=== PATIENT | male | born 1995 | race Two or more races ===

== ENCOUNTER 2017-10-25 00:40 | Emergency (ER) | payer OTHER ==
[2017-10-25] MEDS ORDERED: NAPROXEN 250 MG TABLET PO ONE (01:02)
--- NOTE | 2017-10-25 01:08 | ER Document Report ---
ED Extremity Problem, Upper - General Chief Complaint: Shoulder Pain Stated Complaint: SHOULDER INJURY Time Seen by Provider: 10/25/17 01:01 Mode of Arrival: Ambulatory Information source: Patient TRAVEL OUTSIDE OF THE [place] 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 There was no direct trauma. - Related Data Allergies/Adverse Reactions: No Known Allergies Allergy (Verified 10/25/17 00:50) Past Medical History - Social History Smoking Status: Never Smoker Cigarette use (# per day): No Chew tobacco use (# tins/day): No Smoking Education Provided: No Family History: Reviewed & Not Pertinent Review of Systems - Review of Systems Constitutional: No symptoms reported EENT: No symptoms reported Cardiovascular: No symptoms reported Respiratory: No symptoms reported Gastrointestinal: No symptoms reported Musculoskeletal: See HPI, Joint pain -: Yes All other systems reviewed and negative Physical Exam - Vital signs Vitals: Temp Pulse Resp BP Pulse Ox 98.4 F 80 16 132/92 H 97 10/25/17 00:50 10/25/17 00:50 10/25/17 00:50 10/25/17 00:50 10/25/17 00:50 - Extremities Shoulder: Tender - there is min TTP of the anterior aspect of the R shoulder diffusely. Neg STS; FROM of shoulder; N/V intact Course - Vital Signs Vital signs: Temp Pulse Resp BP Pulse Ox 98.4 F 80 16 132/92 H 97 10/25/17 00:50 10/25/17 00:50 10/25/17 00:50 10/25/17 00:50 10/25/17 00:50 Procedures - Immobilization Right Shoulder Time completed: 01:05 Pre-Proc Neuro Vasc Exam: Normal Immobilizer type: Sling Performed by: RN Post-Proc Neuro Vasc Exam: Normal Alignment checked and good: Yes Discharge - Discharge Clinical Impression: Strain of shoulder, right Qualifiers: Encounter type: initial encounter Qualified Code(s): S46.911A - Strain of unspecified muscle, fascia and tendon at shoulder and upper arm level, right arm , initial encounter Condition: Stable Disposition: HOME, SELF-CARE Additional Instructions: rest, sling, take medications as prescribed, return if worse Prescriptions: Naproxen 500 mg PO BID #20 tablet Referrals: MARY MARC DO [ACTIVE STAFF] - Follow up as needed
[2017-10-25 01:14] VITALS: BP 128/86
== END 2017-10-25 01:14 | disposition home or self-care (01) ==
LOC: ER 00:40
DX: S46.911A Strain of unspecified muscle, fascia and tendon at shoulder and upper arm level, right arm, initial encounter (principal); Y35.893A Legal intervention involving other specified means, suspect injured, initial encounter; Y92.512 Supermarket, store or market as the place of occurrence of the external cause
CPT/HCPCS: 99283